=== PATIENT | male | born 1945 | race Caucasian/White ===

== ENCOUNTER 2016-08-26 13:15 | Observation (INO) | payer OTHER ==
[2016-08-26] VITALS (7 sets, daily range): BP systolic 103–153; BP diastolic 66–90; PULSE 83–94; RESP 18–26; O2SAT 95–97
[~2016-08-26] VITALS: Ht 182.9 cm; Wt 89.6 kg
--- NOTE | 2016-08-26 13:22 | ED.REPORT ---
HPI-General Illness Date of Service August 26, 2016 ED Provider: Thang Sy MD The patient is a 71 year old male w/ a hx of COPD, CO, TIA and peripheral neuropathy who presents to the ED due to numbness in his right arm onset 6 hrs ago. He woke up this morning at 0700 with bilateral blurred vision, numbness and tingling in the right arm and neck. Pt also states that his "jaw wants to lock." He denies chest pain and headache. Pt reports that when he had a previous heart attack, he also experienced right arm numbness. He is on blood thinners. Pt lives by himself. Nursing Notes Stated Complaint: ARM PAIN/NECK PAIN/VISION BLURRED Chief Complaint: General Complaint Nursing Notes Reviewed: Yes Allergies: Coded Allergies: morphine (Verified Allergy, Intermediate, Nausea,Vomiting, 10/31/15) hydrocodone (Verified Allergy, Mild, 08/26/16) methadone (Verified Allergy, Mild, 08/26/16) Scheduled Amitriptyline (Amitriptyline) 150 Mg Tablet 150 MG PO HS Atorvastatin (Lipitor) 40 Mg Tablet 40 MG PO HS Budesonide/Formoterol 160-4.5 mcg Inh (Symbicort 160-4.5 mcg Inh) 120 Puff Inhaler 2 PUFF INHALATION BID Fluticasone Propionate (Fluticasone Propionate Nasal) 16 Gm [place].susp 2 SPRAY NS DAILY Hydrochlorothiazide (Hydrochlorothiazide) 12.5 Mg Capsule 12.5 MG PO DAILY Lisinopril (Lisinopril) 5 Mg Tablet 5 MG PO DAILY Melatonin/Pyridoxine (Melatonin 3 mg Tablet) 1 Each Tablet 2 EACH PO HS Montelukast (Montelukast) 10 Mg Tablet 10 MG PO HS Multivitamin with Minerals (Myvitalife) 1 Each Capsule 1 EACH PO DAILY Pantoprazole DR (Pantoprazole DR) 40 Mg Tablet.dr 40 MG PO BID Pregabalin (Lyrica) 100 Mg Capsule 100 MG PO TID Risperidone (Risperidone) 3 Mg Tablet 3 MG PO HS Tiotropium [place] (Spiriva Respimat) 1.25 Mcg/Actuation Mist.inhal 2 PUFFS IH DAILY Scheduled PRN Capsaicin (Capsaicin) 42.5 Gm Cream..g. 1 APPLIC TOPICAL QID PRN PRN For Pain apply to feet and legs Docusate Sodium (Docusate Sodium) 250 Mg Capsule 250 MG PO BID PRN PRN For Constipation Hydrocodone-Acetaminophen 5-325 mg (Hydrocodone-Acetaminophen 5-325 mg) 1 Each Tablet 1 EACH PO Q4H PRN PRN For Pain Lidocaine Cream (Lidocaine Cream) 5 Gm Cream..g. 1 APPLIC TOPICAL BID PRN PRN feet pain Mirtazapine (Mirtazapine) 30 Mg Tablet 15 MG PO HS PRN PRN Insomnia Nitroglycerin SL (Nitrostat) 0.4 Mg Tab.subl 0.4 MG SL Q5MIN PRN PRN For Chest Pain General Time Seen by MD: 13:21 Chief Complaint Other (right arm numbness ) Hx Obtained From: Patient Arrived By: Walk-in Sudden in Onset?: Yes Onset Occurred: 5 - 8 hours ago Symptom Duration: Since onset Location: : Arm right: Neck Recent Healthcare: No recent doctor visit, No recent hospitalization Similar Sx Previous: No Past Medical History Past Medical History COPD CO with stents 2002 TIA Past Surgical History Laparotomy Cardiac stents 2002 Smoking History Current Every Day Smoker Social History Alcohol Use: Denies alcohol use Drug Use: Denies drug use Ambulatory Status Independent Review of Systems Full Review of Systems Constitutional: Denies: Fever Eyes: Reports: Blurred bilateral Cardiovascular: Denies: Chest pain GI: Denies: Abdominal pain Musculoskeletal: Reports: Extremity pain Neurologic: Reports: Numbness, Weakness, Denies: Headache Complete sys rev & neg: except as marked. Physical Exam Vital Signs Vital Signs Date Time Temp Pulse Resp B/P Pulse Ox O2 Delivery O2 Flow Rate FiO2 08/26/16 14:54 83 23 124/66 95 Room Air 08/26/16 13:35 36.4 93 26 117/68 97 Room Air 08/26/16 13:24 36.9 94 21 103/74 95 Room Air Initial VS: Reviewed Head / Eyes: Atraumatic, Normocephalic, PERRL ENT: Mucous membranes moist Cardiovascular: Regular rate & rhythm, Heart sounds normal, Intact distal pulses Abdomen / GI: Soft, Non-tender, No guarding, No rebound, No distention Back: No CVA tenderness Extremities: Vascular intact, Neuro intact, No swelling, No tenderness Skin: Warm, Dry Neurologic: Alert, Oriented Respiratory / Chest: No wheezing coarse breath sounds Interpretation & Diagnostics Lab Results Interpretation Result Diagram: 08/27/16 0607 08/27/16 0607 Test 5/17/17 13:30 08/26/16 13:53 Prothrombin Time 10.3sec (8.1-12.5) Prothromb Time International Ratio 0.96ratio Magnesium Level 1.9mg/dL (1.6-2.6) Pro-B-Type Natriuretic Peptide 70.08pg/mL (0-376) Osmolality 299 (275-300) Ketones Negative (Negative) ECG Interpretation ECG Interpretation: no ST elevations no ST changes Time: 13:36 Interpreted by: ED physician Normal ECG Interpretation: Normal sinus rhythm (rate 82) X-Ray Chest Interpretation Chest Xray Interpretation: IMPRESSION: Negative chest. No pneumonia or overt heart failure. Dictated by: Man Brasher M.D. on 08/26/2016 at 12:50 Approved by: Man Brasher M.D. on 08/26/2016 at 12:50 View: Portable Interpretation / Wet Read by: Interpret - Radiologist Re-Eval/Medical Decision Med Decision/Clinical Course 71-year-old male history of CAD, CO, stents, hypertension, smoker, hyperlipidemia. Presenting with right arm numbness and left neck pain earlier today. He reports in the same symptoms when he had his CO in the past. EKG no signs ischemia. For such as needed. Given heart score and history, admitted for ACS rule out. Time of Eval: 14:39 Re-Evaluation/Progress Note: Pt rechecked. Informed pt of plan for admission. Pt understands and agrees with plan. All questions addressed. Counseled Regarding: Diagnosis, Lab results, Need for admission Discharge & Departure Primary Impression: Chest pain Chest pain type: unspecified Qualified Code: R07.9 - Chest pain, unspecified Ruled Out: ACS (acute coronary syndrome) Disposition: ADMITTED TO HOSPITAL Discharge Condition All VS Reviewed: Yes Condition: Stable Referrals: NOPCP (PCP) [facility] Scribe Attestation Portion of this note were transcribed by Elizabeth Martinez. I, Dr. yS, personally performed the history, physical exam, and medical decision-making: I reviewed and confirmed the accuracy for the information in the transcribed note. Signed by: cole Solomon, 08/26/16 1500 copies to: [facility] Risk Factors NIH Stroke Scale Level of Consciousness: Alert and responsive (0) Ask Month & Age: Both questions right (0) Open/Close Eyes/Hand Mechanic Field Service: Performs both tasks (0) Horizontal EO Movements: None (0) Visual Linda: No visual loss (0) Facial Palsy: Normal symmetry (0) Right Arm Motor Drift (10s): No drift 10 sec (0) Left Arm Motor Drift (10s): No drift 10 sec (0) Right Leg Motor Drift (5s): No drift 5 sec (0) Left Leg Motor Drift (5s): No drift 5 sec (0) Limb Ataxia FNF/Heel-Baker: No ataxia (0) Sensation (Arms/Legs/Face): No sensory loss (0) Language Aphasia: No aphasia, normal (0) Dysarthria: No dysarthria, normal (0) Extinction/Inattention: No exctinct/inattent (0) Time NIHSS Performed: 13:32 Date NIHSS Performed: August 26, 2016 Thang Sy MD August 26, 2016 13:22 Elizabeth Martinez August 26, 2016 13:32 Left Arm Motor Drift (10s): No drift 10 sec (0) Right Leg Motor Drift (5s): No drift 5 sec (0) Left Leg Motor Drift (5s): No drift 5 sec (0) Limb Ataxia FNF/Heel-Baker: No ataxia (0) Sensation (Arms/Legs/Face): No sensory loss (0) Language Aphasia: No aphasia, normal (0) Dysarthria: No dysarthria, normal (0) Extinction/Inattention: No exctinct/inattent (0) Time NIHSS Performed: 13:32 Date NIHSS Performed: August 26, 2016 Thang Sy MD August 26, 2016 13:22 Elizabeth Martinez August 26, 2016 13:32
[2016-08-26 13:44] LABS: BASOPHILS % (AUTO) 1.1 % (0-3); EOSINOPHILS % (AUTO) 2.3 % (0-5); MONOCYTES % (AUTO) 11.2 % (4-12); Mean Corpuscular Hemoglobin 30.6 pg (27.0-35.0); Mean Corpuscular Volume 89.5 fL (81-100); NEUTROPHILS % (AUTO) 57.2 % (40-74); Platelet Count 291 bil/L (150-400)
[2016-08-26] MEDS ORDERED: 0.9% Sodium Chloride 1,000 ML IV ONE (13:50)
--- NOTE | 2016-08-26 13:51 | DRSVH ---
PROCEDURE: X-RAY CHEST ONE VIEW, PORTABLE ([id number]) INDICATIONS: CHEST PAIN TECHNIQUE: One view of the chest was acquired. COMPARISON: None. FINDINGS: Surgical changes and devices: None. Lungs and pleura: No pleural effusions or pneumothorax. Lungs are clear. Mediastinum: Mediastinal contours appear normal. Heart size is normal. Bones and chest wall: No suspicious bony lesions. Overlying soft tissues appear unremarkable. IMPRESSION: Negative chest. No pneumonia or overt heart failure. Dictated by: Man Brasher M.D. on 08/26/2016 at 12:50 Approved by: Man Brasher M.D. on 08/26/2016 at 12:50
[2016-08-26 14:01] LABS: INR 0.96 ratio
[2016-08-26 14:12] LABS: TROPONIN T < 0.010 ug/L (0.0-0.011)
--- NOTE | 2016-08-26 14:33 | DRSVH ---
PROCEDURE: CT BRAIN WITHOUT CONTRAST ([id number]) INDICATIONS: RUE numbness TECHNIQUE: Noncontrast 4.5 mm thick angled axial sections acquired from the foramen magnum to the vertex, with c oronal reformats. COMPARISON: None. FINDINGS: Image quality: Diagnostic. Brain: There is no acute intra-axial or extra-axial hemorrhage. No extra-axial fluid collection is i dentified. There is no midline shift or mass effect. The orbits are grossly unremarkable. No large areas of diffusely decreased attenuation are evident within the brain to suggest diffuse cer ebral edema. There may be vague areas of low-attenuation within the deep white matter of the bilater al frontal lobes (right greater left). The ventricles and cortical sulci are age-appropriate. Bones: Calvarium and visualized facial bones are grossly intact. The imaged paranasal sinuses and m astoid air cells are clear. IMPRESSION: 1. No acute intracranial hemorrhage. 2. Vague areas of low-attenuation within the deep white matter of the frontal lobes is nonspecific a nd may be related to chronic small vessel ischemic changes. The need for better characterization uti lizing MRI may be determined clinically. Dictated by: Man Brasher M.D. on 08/26/2016 at 13:28 Approved by: Man Brasher M.D. on 08/26/2016 at 13:31
[2016-08-26 14:35] LABS: Magnesium 1.8 mg/dL (1.6-2.6)
[2016-08-26] MEDS ORDERED: Alum-Mag Hydrox-Simeth 30 mL Suspension PO PRN (15:10)
[2016-08-26] MEDS ORDERED: Polyethylene Glycol (PEG) 17 Gm Powder PO PRN (15:10)
[2016-08-26] MEDS ORDERED: Ondansetron 2 mg/mL 2 mL Inj IVPUSH PRN (15:10)
--- NOTE | 2016-08-26 15:32 | NUR ---
admit pt is transferred up from ED. pt transfers himself from the gurney to the hospital bed. pt denies CP. tele started. HAZARDOUS WASTE MATERIAL TECHNICIAN getting vitals.
[2016-08-26] MEDS ORDERED: AMIT150T PO (15:34)
[2016-08-26] MEDS ORDERED: HYDR-4003 PO (15:34)
[2016-08-26] MEDS ORDERED: LIP40 PO (15:34)
[2016-08-26] MEDS ORDERED: MONT10TA23 PO (15:46)
[2016-08-26] MEDS ORDERED: HYDR12.5 PO (15:46)
[2016-08-26] MEDS ORDERED: LIDO5CRE17 TOPICAL (15:46)
[2016-08-26] MEDS ORDERED: CAPS42.58 TOPICAL (15:46)
[2016-08-26] MEDS ORDERED: MIRT30TA6 PO (15:46)
[2016-08-26] MEDS ORDERED: PANT40TA3 PO (15:46)
[2016-08-26] MEDS ORDERED: MELA1TAB11 PO (15:46)
[2016-08-26] MEDS ORDERED: MULT1CAP45 PO (15:46)
[2016-08-26] MEDS ORDERED: NITR0.4T SL (15:46)
[2016-08-26] MEDS ORDERED: TIOT4MIS5 IH (15:46)
[2016-08-26] MEDS ORDERED: FLUT16SP NS (15:46)
[2016-08-26] MEDS ORDERED: DOCU250C2 PO (15:46)
[2016-08-26] MEDS ORDERED: RISP3TAB3 PO (15:46)
[2016-08-26] MEDS ORDERED: LISI-571 PO (15:46)
[2016-08-26] MEDS ORDERED: SYMINH INHALATION (15:46)
[2016-08-26] MEDS ORDERED: PREG100C PO (15:46)
[2016-08-26] MEDS: Sodium Chloride LOK Flush 10 mL Syringe IVFLUSH SCH (16:18)
[2016-08-26 17:09] LABS: APPEARANCE,URINE CLEAR (CLEAR,HAZY); COLOR,URINE YELLOW (YELLOW); OCCULT BLOOD,URINE NEGATIVE (NEGATIVE); UROBILINOGEN,URINE NORMAL (NORMAL)
--- NOTE | 2016-08-26 17:38 | NUR ---
daughter's update daughter calls to get an update on pt, this RN let her know that her father is in stable condition. She states that her father has been slurring his words for about 1 week when she speaks with him on the phone.
[2016-08-26] MEDS ORDERED: Lidocaine 5% 35.5 Gm Ointment TOPICAL PRN (17:55)
[2016-08-26] MEDS: HYDROcodone-APAP 5-325 mg Tablet PO PRN (19:35)
[2016-08-26 19:42] LABS: TROPONIN T < 0.010 ug/L (0.0-0.011)
[2016-08-26 19:44] LABS: Creatine Kinase 93 U/L (21-232)
--- NOTE | 2016-08-26 19:46 | NUR ---
Home meds in pharmacy Patient's home medications sent to [facility] Patient signed sealed bag, agreeable with policy.
[2016-08-26] MEDS: risperiDONE 1 mg Tablet PO SCH (20:50)
[2016-08-26] MEDS: Pantoprazole 40 mg ER24 Tablet PO SCH (20:50)
[2016-08-26] MEDS: Fluticasone-Salmeterol 500-50 Inhaler INHALATION SCH (20:50)
--- NOTE | 2016-08-26 21:36 | DRSVH ---
CORRECTED CC PROVIDER ON 09/10/16 PROCEDURE: MRI STROKE PROTOCOL ([id number]) Pre- and post-contrast brain MRI, non-contrast brain MR angiogram, pre- and postcontrast neck MR en ogram INDICATIONS: unilateral numbness, weakness TECHNIQUE: Brain: Noncontrast axial T1 spin echo, axial T2 fast spin echo, sagittal and axial FLAIR, coronal T2 fast spin echo, axial gradient echo, axial diffusion and ADC through the brain. After the administr ation of contrast, axial 3D VIBE of the cranial vasculature and brain. Brain MRA: Non-contrast 3-D time of flight MR angiogram, with multiple kvlwwuz-gzkdhgtyl-icqpkpcmae (MIP) reformats performed. Neck MRA: Axial and sagittal TruFISP through the neck. Coronal dynamic MR angiogram during administ ration of contrast in the arterial and venous phases, with 3-dimenstional znppybs-mqcdwoqtt-gyfmhkfnt n (MIP) reformats constructed from subtraction images. COMPARISON: [facility], MR, MR LUMBAR SPINE WO CON, 07/14/2016, 14:07. FINDINGS: Image quality: Adequate. BRAIN: CSF spaces: Ventricles are normal in size and shape. Basal cisterns are patent. No extra-axial flu id collections. Brain: No intracranial bleeds or mass effects. Schulte-white matter interface is normal. Diffusion we ighted images show no acute ischemic insults. Brainstem appears normal. Normal intravascular flow v oids are present. No abnormal intracranial enhancement. Increased T2 signal in the subcortical and periventricular white matter rhythm was regular for the patient's age. Skull and face: Calvarial marrow signal is normal. Orbits appear normal. Sinuses: Sinuses and mastoids are clear. BRAIN MR ANGIOGRAM: Anterior circulation: Intracranial internal carotid arteries are normal in size and enhancement. Th e flow within the paired anterior cerebral arteries is normal and symmetric. The flow within the mid dle cerebral arteries is normal and symmetric. The anterior communicating artery is seen. No stenos es, occlusions, or aneurysms. Posterior circulation: The visualized portions of the vertebral arteries demonstrate normal caliber, and join to form a normal appearing basilar artery. The flow within the posterior cerebral arteries is normal and symmetric. No stenoses, occlusions, or aneurysms. NECK MR ANGIOGRAM: Carotids: Great vessels demonstrate a conventional anatomy as they arise from the aortic arch. The origins of the common carotid arteries appear patent. The calibers and courses of both common caroti d arteries are normal. The bifurcation regions appear normal bilaterally. The internal carotid petey rogerio demonstrate normal course and caliber. Posterior circulation: The origins of the vertebral arteries appear patent. More superior portions of both vertebral arteries demonstrate normal course and caliber, and join to form a normal appearing basilar artery. Miscellaneous: Subclavian arteries appear patent. Pre-contrast images through the neck show no soft tissue abnormalities. IMPRESSION: BRAIN MRI: Increased T2 signal in the subcortical and periventricular white matter greater than expec charli for the patient's age most consistent with chronic benign ischemic change. Vasculitis or demyelin ating disease is much less likely given the patient's age. No acute intracranial findings including n o acute infarction. BRAIN MR ANGIOGRAM: Normal NECK MR ANGIOGRAM: Normal The estimate of stenosis included in the report of the imaging study was calculated using the NASCET method Dictated by: Kyaw Chavarria M.D. on 08/26/2016 at 21:20 Approved by: Kyaw Chavarria M.D. on 08/26/2016 at 21:29
[2016-08-27] VITALS (10 sets, daily range): BP systolic 122–145; BP diastolic 67–83; PULSE 84–89; RESP 19–21; O2SAT 93–95
--- NOTE | 2016-08-27 00:13 | PCM.HPMED ---
Subjective Date of Service August 26, 2016 Primary Provider: Admitting Physician: Noman Alvarez MD Primary Care Physician: Dheeraj Attending Physician: Noman Alvarez MD Admit Status: From the Emergency Department Chief Complaint: Right elbow numbness, pain neck pain History of Present Illness: Patient with past medical history history of AAA, CAD status post AL for which she received 2 stents in 2002, TIA, diabetes, hyperlipidemia, GERD, COPD, neuropathy, tobacco abuse is presenting to the ER with nonspecific right elbow down to her right wrist pain (this is the same pain he has had back in 2019 when he had an AL), onset was 2 days ago he also had another episode today during which both sides of his neck and GI would hurt and not open his episodes lasted a few hours each time today to the pain has started at 7 AM when he woke up and by noon it got much worse. He has had shortness of breath earlier but not anymore. All the pain has subsided. Pain was worse with movement. He has no urinary symptoms, no appetite problems, no nausea vomiting no diarrhea. He does endorse some constipation. In the ER EKG was normal sinus rhythm troponin was normal but glucose was initially 400s but upon a follow-up pravastatin be only on 100s chest x-ray was nonacute CT showed nonspecific Review of Systems: Gen.: No weight gain patient has not been having fevers and malaise Eyes: no visual disturbances or blurring vision HEENT: No nose/throat drainage, no pain in ears or throat, no hearing loss Lymph: No lymph nodes noted Cardiac: No chest pain, orthopnea, PND, palpitations , pedal edema or dyspnea on exertion Pulmonary: Positive wheezing or bringing up of sputum + worsening dyspnea and cough, l GI: No anorexia nausea vomiting blood or black in the stool : no dysuria hematuria urinary frequency or decrease in urine output Musculoskeletal: Joint swelling no joint pain no new muscle aches or back pain Neuro: No syncope, seizures no loss of consciousness . Endorsing numbness over his left arm. Psychiatric: New new anxiety insomnia or depression Endocrine: No new heat or cold intolerances polyuria or polydipsia Hematology: No lymphadenopathy or easy bleeding or bruising noted skin: No new rashes, stasis dermatitis I will review of systems negative except as stated above Allergies Coded Allergies: morphine (Verified Allergy, Intermediate, Nausea,Vomiting, 10/31/15) hydrocodone (Verified Allergy, Mild, 08/26/16) methadone (Verified Allergy, Mild, 08/26/16) PMH Past medical history significant for abdominal aortic aneurysm, CAD, TIA, DM 2, hyperlipidemia, GERD, COPD, peripheral neuropathy Surgical History Past surgical history remarkable for exploratory abdominal laparotomy cardiac stents Family History Mother of natural causes, dad of natural causes, sister has of heart attack, brother was killed after trauma Social History Hx Alcohol Use: No Hx Substance Use: No Hx Tobacco Use: No Smoking Status: Current Every Day Smoker (smokes one pack per day declines nicotine patch) Living Arrangement: Alone Exam Vital Signs Vital Sign - Last Date Time Temp Pulse Resp B/P Pulse Ox O2 Delivery O2 Flow Rate FiO2 08/26/16 15:51 88 08/26/16 15:40 36.6 20 153/90 96 Room Air Exam Gen.: No acute distress pleasant HEENT: Normocephalic, large healed up injury noted over his frontal skull Heart: systolic murmur, regular rate and rhythm lungs: Positive for ronchi, wheezing, neuro: lower right arm numbness, right-sided face numb Extremities negative for edema Neuro exam : CN II-12 positive for altered sensation all the right side of face , no leg edema, negative romberg, negative babinski, reflex achilles 1+, unable to elicit patellar reflex , altered sensation over right lower arm Musculoskeletal: Weakness in right hand compared to left fifth finger robotics engineer Lab and Diagnostics Result Diagram: 08/26/16 1330 08/26/16 1330 X-Rays, CTs and MRIs CT head without Vague areas of low-attenuation within the deep white matter of the frontal lobes is nonspecific and may be related to chronic small vessel ischemic changes. The need for better characterization utilizing MRI may be determined clinically. Negative for acute bleeding Assessment & Plan Assessment #1 nonspecific pain the patient feels is the same as that but he had with his prior AL, present admission -- We will rule out ACS -- Troponins, telemetry monitoring, oxygen as needed, he is allergic to morphine , -- Continue medications lisinopril, Plavix, statin -- NM Chemical stress test tomorrow a.m. Assessment #2 new onset numbness over arm and face: -- CT head was negative will follow up with MRI and CAT scan -- Echocardiogram tomorrow a.m. Assessment #12 CAD: Chronic Continue medications Assessment #3 DM 2: Chronic Patient has no home medications, will continue to monitor blood glucose Assessment #4 hyperlipidemia -- Continue home meds Assessment #5 COPD assessment #5 COPD continue home medications Spiriva Symbicort Assessment #6 neuropathy -- Continue home medication. pregabalin Assessment #7 depression, chronic -- Continue home medication mirtazapine Pain Evaluation: Adequate Pain Control Resuscitation Status: DNR/DNI:Do Not Resuscitate/Intubate (Dr. Lewis is also made decision maker) Time spent 45 minutes Brittany Alvarez DO August 26, 2016 18:17
[2016-08-27] MEDS: Sodium Chloride LOK Flush 10 mL Syringe IVFLUSH SCH ×3 (00:55→16:21)
[2016-08-27 01:59] LABS: Creatine Kinase 84 U/L (21-232)
--- NOTE | 2016-08-27 04:17 | NUR ---
Uneventful night Patient slept through the night, woke up with assessments and to use restroom. [place] alarm on for safety, patient is SBA with his cane. Remained alert and oriented, neuros unchanged, denied chest pain, vital signs stable. Patient has been NPO since midnight for planned stress test.
[2016-08-27 06:27] LABS: BASOPHILS % (AUTO) 1.2 % (0-3); EOSINOPHILS % (AUTO) 2.2 % (0-5); MONOCYTES % (AUTO) 9.2 % (4-12); Mean Corpuscular Hemoglobin 30.4 pg (27.0-35.0); Mean Corpuscular Volume 91.3 fL (81-100); Platelet Count 251 bil/L (150-400)
[2016-08-27] MEDS: Pantoprazole 40 mg ER24 Tablet PO SCH ×2 (07:49→20:40)
[2016-08-27] MEDS: 0.9% Sodium Chloride 1,000 ML IV SCH ×2 (07:50→17:30)
[2016-08-27] MEDS: Fluticasone 0.05% 15 Spray/2 Gm 16 Gm Nasal Spray NASAL SCH (07:54)
[2016-08-27] MEDS: Fluticasone-Salmeterol 500-50 Inhaler INHALATION SCH ×2 (07:54→20:40)
[2016-08-27] MEDS: Tiotropium 18mcg/Cap 5 Capsule Inhaler Kit INHALATION SCH (07:55)
[2016-08-27] MEDS: HYDROcodone-APAP 5-325 mg Tablet PO PRN ×2 (07:55→19:24)
[2016-08-27] MEDS: Heparin 5,000 Unit/mL Inj SUBQ SCH ×2 (08:26→16:32)
--- NOTE | 2016-08-27 08:27 | NUR ---
pt states that he woke up this am with a swollen left forearm and hand. pt also states that it has been gradually improving as the morning goes on. Monitoring
--- NOTE | 2016-08-27 10:11 | DRSVH ---
PROCEDURE: US BILATERAL DUPLEX DOPPLER IMAGING OF THE CAROTIDS ([id number]) INDICATIONS: stroke r/o TECHNIQUE: Color and pulse Doppler interrogation was performed of both carotid systems, with image documentation and velocity measurements. COMPARISON: None. FINDINGS: All stenosis calculations are based on NASCET criteria. Right side: Brachial blood pressure: Not obtained. Common Carotid Artery(Distal) PSV: 63.10 cm/s Internal Carotid Artery PSV- Proximal: 65 cm/s Mid-lon.50 cm/s Distal: 81.30 cm/s EDV - Proximal: 19.50 cm/s Mid-lon.50 cm/s Distal: 30.80 cm/s External Carotid Artery(Proximal) PSV: 86.90 cm/s ICA/CCA PSV ratio: 1.3 Schulte scale imaging description: Minimal plaque. Percent internal carotid artery stenosis: Less than 50%. Vertebral artery: Flow direction is antegrade. Left side: Brachial blood pressure: 137/81 mm Hg. Common Carotid Artery(Distal) PSV: 68.30 cm/s Internal Carotid Artery PSV - Proximal: 62.20 cm/s Mid-lon.50 cm/s Distal: 79.60 cm/s EDV - Proximal: 19 cm/s Mid-lon cm/s Distal: 26.90 cm/s External Carotid Artery(Proximal) PSV: 108.30 cm/s ICA/CCA PSV ratio: 1.2 Schulte scale imaging description: Minimal plaque. Percent internal carotid artery stenosis: Less than 50%. Vertebral artery: Flow direction is antegrade. IMPRESSION: Less than 50% bilateral internal carotid artery stenosis. Dictated by: José Miguel AMADOR Interpreted: Amalia Blakely MD on 08/27/2016 at 10:07 Transcribed by: TIFFANI on 08/27/2016 at 10:10 Approved by: Amalia Blakely M.D. on 08/28/2016 at 9:36
--- NOTE | 2016-08-27 11:17 | DRSVH ---
[facility] [address] [place] [address] Echocardiogram Report Name: ASHLEY MCMULLEN WStudy Date : 08/27/2016 Height: 72 in Hospital Exam Location: [facility] Weight: 197 lb Gender: Male BSA: 2.1 m2 : 1945 Age: 71 yrs BP: 122/79 mmHg Reason For Study: MURMUR Ordering Physician: ADIS OTOOLE Performed By: Tacho Lanier Interpretation Summary The left ventricle is normal in size. Left ventricular systolic function is normal without focal wall motion abnormalities. The ejection fraction is estimated to be 60-65%. Assessment of diastolic parameters indicates a relaxation abnormality of the left ventricle, consistent with normal filling pressures. The right ventricle is normal in size and function. Both atria are normal in size. There is no significant valvular heart disease. The aortic root is normal size. Procedure: A two-dimensional transthoracic echocardiogram with color flow and Doppler was performed. The study quality was technically adequate. There is no prior echocardiogram noted for this patient. The subcostal views were not obtained due to lack of useable window. The patient was in normal sinus rhythm during the exam. Left Ventricle: The left ventricle is normal in size. There is normal left ventricular wall thickness. Left ventricular systolic function is normal without focal wall motion abnormalities. The ejection fraction is estimated to be 60-65%. Assessment of diastolic parameters indicates a relaxation abnormality of the left ventricle, consistent with normal filling pressures. Right Ventricle: The right ventricle is normal in size and function. Atria: Both atria are normal in size. The interatrial septum is intact with no evidence for an atrial septal defect. Mitral Valve: The mitral valve is normal in structure and function. There is trace mitral regurgitation. Aortic Valve: The aortic valve is trileaflet. The aortic valve is slightly calcified. The aortic valve opens well. There is no aortic valve stenosis. No aortic regurgitation is present. Tricuspid Valve: The tricuspid valve is normal in structure and function. There is a trace or physiologic amount of tricuspid regurgitation. Pulmonary artery pressures cannot be estimated because of the lack of a measurable TR jet velocity. Pulmonic Valve: The pulmonic valve is normal in structure and function. There is trace pulmonic regurgitation. There is no significant valvular heart disease. Great Vessels: The aortic root is normal size. The dimensions of the ascending aorta are normal. The pulmonary artery is normal size. The inferior vena cava was not visualized. Pericardium/ Pleura There is no pericardial effusion. There is no pleural effusion. MMode/2D Measurements & Calculations LVIDd: 4.9 cm LA dimension: 3.7 cm RA long axis LVOT diam: 2.4 cm LVIDs: 3.3 cm Ao root diam FS: 32.2 % LA A2 area: 18.7 cm RA area EPSS: 0.87 cm LA A4 area: 17.5 cm Aortic Jxn: 2.7 cm IVSd: 1.1 cm LA length (vol) : 14.8 cm asc Aorta Diam LVPWd: 0.94 cm RA vol LA vol: 51.8 ml : 36.9 ml Ao Arch Diam (Prox LA vol index RA Trans): 2.7 cm : 17.4 mm2 : 24.5 ml/m2 LV knight. diameter/BSA LV sys. diameter/BSA RVD1 (basal) RVD2 (mid): 3.3 cm (cm/m^2): 2.3 (cm/m^2): 1.6 Doppler Measurements & Calculations Ao V2 max MV E max piyush MV E/A: 0.63 PA V2 max : 139.3 cm/sec : 53.8 cm/sec Med Peak E' Piyush : 84.8 cm/sec Ao max P.8 mmHg MV A max piyush PA mean PG Ao mean P.5 mmHg : 84.8 cm/sec E/E' med: 9.1 LVOT Max Piyush Lat Peak E' Piyush PA Accel Time : 100.0 cm/sec : 0.11 sec E/E' lat: 5.9 MERCEDES(I,D): 3.2 cm E/e' average sev ratio: 0.70 Pulm A Revs Dur MV A dur : 0.13 sec MV dec time: 0.22 secAo V2 mean LV V1 max PG PA V2 mean : 102.0 cm/sec : 66.5 cm/sec Ao V2 VTI: 27.7 cm LV V1 VTI PA pr(Accel) : 19.5 cm : 31.6 mmHg MERCEDES(V,D): 3.3 cm2 MERCEDES indexed to BSA Pulm A Revs Dur - MV A (cm^2/m^2): 1.5 Dur: -0.01 msec Reading Physician:EVERETT
--- NOTE | 2016-08-27 15:05 | NUR ---
Social Work: Initial Assessment / Readiness for d/c Data: Pt is a 71 y/o male admitted for CP. Pt's PCP is not listed, pt's insurance is [employer]. Pt reports he goes to [facility] for medical care. Readmit score not listed. EMR reviewed. HEALTH UNDERWRITER met with pt at bedside, role explained. Pt states that he lives alone in a roadside coffee shop that was never made into a coffee shop. He lives next door to a friends trailer and uses this person toilet. Pt states he has a cane, walker, and electric scooter. Pt drives, has no hx of HH or SNF, not LTC insurance. Pt is 100% connected to the [facility], HEALTH UNDERWRITER notified UR specialist. Pt reports that he has been up and independent during hospitalization. No d/c planning needs anticipated at this time. HEALTH UNDERWRITER will continue to follow if needs arise. Pt reports NOK would be a friend named Kitty Henry, , who he states is like a step-daughter to him. Assessment: Pt who is independent at baseline. Plan: Pt will d/c home via POV when medically stable, possibly today or tomorrow per MD. No d/c planning needs anticipated at this time. HEALTH UNDERWRITER will continue to follow if needs arise. ROSAURA Roldan Addendum: 08/27/16 at 1509 by ANTONIA JENKINS Amended: Links added.
[2016-08-27] MEDS: risperiDONE 1 mg Tablet PO SCH (20:40)
--- NOTE | 2016-08-27 21:02 | DRSVH ---
PROCEDURE: ONE DAY PHARMACOLOGICAL STRESS TEST REFERRING PHYSICIAN: Dr. Alvarez INDICATIONS: Mr. Deutsch is a 71-year-old male with a history of coronary disease and peripheral arteri al disease. The patient presents with symptoms of chest discomfort and a nuclear cardiac stress stud y is performed to exclude underlying ischemic heart disease. COMPARISON: None. STRESS TEST: This gentleman underwent a Lexiscan pharmacologic stress study. The baseline 12-lead E KG appears to be normal. The patient developed symptoms of significant dyspnea, flushing and lighthe adedness following Lexiscan injection with a normal pharmacologic response and was treated with 100 m g of intravenous aminophylline. EKG did not demonstrate any diagnostic ST segment changes. PROCEDURE: This patient received 7 mCi of technetium-99 tetrofosmin for the resting portion of the e xamination. He subsequently received 23.9 mCi for the stress portion of the examination. FINDINGS: 1. Raw Data: Raw data images demonstrate overall good quality images. No significant source of art ifact or interference is identified. 2. Quantitative Gated SPECT Imaging: Gated images show a normal end diastolic volume of 77 cc. Est imated ejection fraction is 78% with no regional wall motion abnormalities noted. 3. Quantitative Perfusion SPECT Imaging: Myocardial perfusion imaging shows a normal distribution o f radioisotope throughout the myocardium. There is a moderate amount of diaphragmatic tissue attenua tion artifact seen on both stress and rest perfusion images, but normalized with prone imaging. Once again, no fixed or reversible perfusion abnormalities are noted that would suggest ischemia or infar ction. IMPRESSION: Normal nuclear cardiac stress study. DISCUSSION: Nuclear cardiac stress study suggests a low likelihood for the presence of significant r ecurrent obstructive coronary artery disease. Clinical correlation is suggested. Dictated by: Tristin Crain M.D. on 08/27/2016 at 16:53 Transcribed by: JUNIOR on 08/28/2016 at 0:02 Approved by: Tristin Crain M.D. on 09/22/2016 at 15:40
--- NOTE | 2016-08-27 21:14 | PCM.PNMED ---
Subjective Date of Service August 27, 2016 Subjective Patient is seen and examined. His biological daughter called in the room and questions were answered to her satisfaction. Patient states he had no chest pain, dyspnea or fevers or chills overnight. States he has had a pretty good night. He recalls neck ultrasound being done this morning. He states that his numbness over his right arm is resolved, but now he is endorsing bilateral facial numbness going back into his scalp Exam Vital Signs Vital Sign - Last Date Time Temp Pulse Resp B/P Pulse Ox O2 Delivery O2 Flow Rate FiO2 08/27/16 09:18 36.5 84 21 137/81 93 Room Air Intake and Output 08/26/16 08/26/16 08/27/16 Cumulative From/Thru 15:00 23:00 07:00 08/26/16 13:24 - 08/26/16 21:57 Intake Total 1000 ml 500 ml 1500 ml Output Total 1400 ml 1400 ml Balance 1000 ml -900 ml 100 ml Intake Oral 500 ml 500 ml IV Total 1000 ml 1000 ml Output Urine Total 1400 ml 1400 ml # Bowel Movements 0 0 Exam Gen.: No acute distress moving around and in the bed okay HEENT: Normocephalic, atraumatic with the exception of old scar over his frontal scalp Heart: Distant heart sounds due to chronic COPD Lungs: Decreased respirator sounds throughout but no wheezing or crackles heard abdomen: Nondistended soft Extremities: No edema Neck: Trachea central states that Feels tight Neuro: Bilateral numbness sensation symmetric distribution to gentle check touch ,his left arm numbness from yesterday has resolved.. Patient has no focal deficits IVs and Medications IV Fluids Normal saline 100 mL/h Medications Reviewed: Medications were reviewed in detail Lab and Diagnostics Result Diagram: 08/27/16 0607 08/27/16 0607 X-Rays, CTs and MRIs CT head without Vague areas of low-attenuation within the deep white matter of the frontal lobes is nonspecific and may be related to chronic small vessel ischemic changes. The need for better characterization utilizing MRI may be determined clinically. Negative for acute bleeding Brain MRa 08/27 IMPRESSION: BRAIN MRI: Increased T2 signal in the subcortical and periventricular white matter greater than expected for the patient's age most consistent with chronic benign ischemic change. Vasculitis or demyelinating disease is much less likely given the patient's age. No acute intracranial findings including no acute infarction. BRAIN MR ANGIOGRAM: Normal NECK MR ANGIOGRAM: Normal The estimate of stenosis included in the report of the imaging study was calculated using the NASCET method Dictated by: Kyaw Chavarria M.D. on 08/26/2016 at 21:20 Approved by: Kyaw Chavarria M.D. on 08/26/2016 at 21:29 Carotid Doppler study: MPRESSION: Less than 50% bilateral internal carotid artery stenosis. Dictated by: José Miguel Jung RRAriana Interpreted: Amalia Blakely MD on 08/27/2016 at 10: 07 Transcribed by: TIFFANI on 08/27/2016 at 10:10 Brain MRI MPRESSION: BRAIN MRI: Increased T2 signal in the subcortical and periventricular white matter greater than expected for the patient's age most consistent with chronic benign ischemic change. Vasculitis or demyelinating disease is much less likely given the patient's age. No acute intracranial findings including no acute infarction. BRAIN MR ANGIOGRAM: Normal NECK MR ANGIOGRAM: Normal The estimate of stenosis included in the report of the imaging study was calculated using the NASCET method Dictated by: Kyaw Chavarria M.D. on 08/26/2016 at 21:20 Approved by: Kyaw Chavarria M.D. on 08/26/2016 at 21:29 Cardiac Echo Impressions Echocardiogram08/27/16 The left ventricle is normal in size. Left ventricular systolic function is normal without focal wall motion abnormalities. The ejection fraction is estimated to be 60-65%. Assessment of diastolic parameters indicates a relaxation abnormality of the left ventricle, consistent with normal filling pressures. The right ventricle is normal in size and function. Both atria are normal in size. There is no significant valvular heart disease. The aortic root is normal size. Assessment & Plan Assessment #1 nonspecific pain the patient feels is the same as that but he had with his prior NH, present admission -- We will rule out ACS -- Troponins, telemetry monitoring, oxygen as needed, he is allergic to morphine , -- Continue medications lisinopril, Plavix, statin -- NM Chemical stress test 08/27 a.m.: Results pending -- Cardiac echo: 60-65% EF Assessment #2 new onset numbness over arm and face: -- CT head was negative will follow up with MRI brain: Stroke protocol MRA showed no concern for acute stroke, chronic ischemic changes noted and was called for his age are seen. Ruled out acute stroke. -- Neck ultrasound carotid study: neg for critical stenosis -- Arm numbness has resolved -- and says numbness over his face is now bilateral radiating into parietal , frontal and temporal skull: We will discuss with Dr. Resendiz. Dr. Baker agrees that this can be followed safely as an outpatient. We appreciate her recommendation. Assessment #3 Elevated Creatnine: -- Likely due to dehydration -- Normal 100 mL/h Assessment # 4 CAD: Chronic --Continue medications Assessment #5 DM 2: Chronic -- Patient has no home medications, will continue to monitor blood glucose -- Ordered A1C. Assessment #6 hyperlipidemia -- Continue home meds Assessment #7 COPD continue home medications Spiriva Symbicort Assessment #8 neuropathy -- Continue home medication. pregabalin Assessment #9 depression, chronic -- Continue home medication mirtazapine Disposition: Discharged to home tomorrow if stress looks looks okay Pain Evaluation: Adequate Pain Control Resuscitation Status: DNR/DNI:Do Not Resuscitate/Intubate (Dr. Lewis is also made decision maker) Time spent 30 min Brittany Alvarez DO August 27, 2016 09:27
[2016-08-28] MEDS: Sodium Chloride LOK Flush 10 mL Syringe IVFLUSH SCH ×2 (00:30→08:04)
[2016-08-28] MEDS: Heparin 5,000 Unit/mL Inj SUBQ SCH ×2 (00:52→08:14)
[2016-08-28 00:57] VITALS: BP 134/81; PULSE 85; RESP 18; O2SAT 93
[2016-08-28] MEDS: 0.9% Sodium Chloride 1,000 ML IV SCH (02:03)
--- NOTE | 2016-08-28 03:17 | NUR ---
Left hand swelling Patient reported at 0100 that his left hand was swelling again. Before this, patient had left arm hanging down off of bed while sleeping. Left hand is visibly tight, slightly swollen compared to right hand. IV site in left AC is asymptomatic, fluids infusing. Bed rail raised, pillow placed for patient to keep left arm elevated. Appreciative of intervention, declined PRN pain medication.
[2016-08-28 05:08] VITALS: BP 142/76; PULSE 87; RESP 18; O2SAT 94
[2016-08-28 06:27] VITALS: PULSE 74
[2016-08-28 08:00] VITALS: PULSE 91
[2016-08-28] MEDS: Pantoprazole 40 mg ER24 Tablet PO SCH (08:13)
[2016-08-28] MEDS: Fluticasone-Salmeterol 500-50 Inhaler INHALATION SCH (08:19)
[2016-08-28] MEDS: Fluticasone 0.05% 15 Spray/2 Gm 16 Gm Nasal Spray NASAL SCH (08:20)
[2016-08-28] MEDS: HYDROcodone-APAP 5-325 mg Tablet PO PRN (08:20)
[2016-08-28] MEDS: Tiotropium 18mcg/Cap 5 Capsule Inhaler Kit INHALATION SCH (08:20)
--- NOTE | 2016-08-28 09:00 | NUR ---
Spoke with Elena in patient access at [facility] and this patient is 100% service connected and PNT. Patient also holds [place] and [facility] part D Updated NEUROSURGERY SPINE PHYSICIAN
--- NOTE | 2016-08-28 11:49 | NUR ---
Social Work: Discharge Data: Pt is on day 2 of hospitalization. EMR reviewed. MD states pt will d/c today. CORPORATE TRAFFIC MANAGER met with pt and gave him housing resources. No further d/c planning needs at this time. CORPORATE TRAFFIC MANAGER will continue to follow if needs arise. Assessment: Pt who is independent at baseline. Plan: Pt will d/c home via POV today per MD once D/C orders written. Housing resources given. No further d/c planning needs at this time. CORPORATE TRAFFIC MANAGER will continue to follow if needs arise. ROSAURA Roldan
[2016-08-28] MEDS ORDERED: METO25TA6 PO (11:51)
--- NOTE | 2016-08-28 11:53 | PCM.DIMED ---
Discharge Instructions Date of Service August 28, 2016 Dates of Hospitalization August 26, 2016 at 15:09 Discharge Diagnosis Discharge Diagnosis ACS r/o, neurological symptoms Medication Instructions Please take metoprolol as prescribed Diet Heart Healthy Activity No restrictions Call your provider Fever or Chills, Shortness of breath, Bleeding, Chest pain, Vomitting, Excessive diarrhea, Weakness (unilateral), Other Patient Instructions Follow-up plan F/U with PCP in one week F/U BMP prior to f/u with PCP Brittany Alvarez DO August 28, 2016 11:53
--- NOTE | 2016-08-28 13:09 | NUR ---
Discharge IV discontinued fully intact due to falling out earlier in shift. Tele removed. Discharge instructions explained to patient who verbalizes understanding. All personal belongings given to patient. This RN walked patient to front door of hospital. Patient states that he lives across street.
--- NOTE | 2016-08-31 03:47 | PCM.DC.MED ---
Discharge Summary Date of Service August 31, 2016 Dates of Hospitalization Date of Hospital Admission August 26, 2016 at 15:09 Date of Discharge: August 28, 2016 Providers: Admitting Physician: Brittany Woody DO Primary Care Physician: Dheeraj Attending Physician: Brittany Woody DO Diagnosis at Time of Discharge Diagnosis at Time of Discharge ACS r/o, neurological symptoms Consultations None Procedures XRay, CTs & MRIs CT head without Vague areas of low-attenuation within the deep white matter of the frontal lobes is nonspecific and may be related to chronic small vessel ischemic changes. The need for better characterization utilizing MRI may be determined clinically. Negative for acute bleeding Brain MRa 08/27 IMPRESSION: BRAIN MRI: Increased T2 signal in the subcortical and periventricular white matter greater than expected for the patient's age most consistent with chronic benign ischemic change. Vasculitis or demyelinating disease is much less likely given the patient's age. No acute intracranial findings including no acute infarction. BRAIN MR ANGIOGRAM: Normal NECK MR ANGIOGRAM: Normal The estimate of stenosis included in the report of the imaging study was calculated using the NASCET method Dictated by: Kyaw Chavarria M.D. on 08/26/2016 at 21:20 Approved by: Kyaw Chavarria M.D. on 08/26/2016 at 21:29 Carotid Doppler study: MPRESSION: Less than 50% bilateral internal carotid artery stenosis. Dictated by: José Miguel Jung [facility] Interpreted: Amalia Blakely MD on 08/27/2016 at 10: 07 Transcribed by: TIFFANI on 08/27/2016 at 10:10 Brain MRI MPRESSION: BRAIN MRI: Increased T2 signal in the subcortical and periventricular white matter greater than expected for the patient's age most consistent with chronic benign ischemic change. Vasculitis or demyelinating disease is much less likely given the patient's age. No acute intracranial findings including no acute infarction. BRAIN MR ANGIOGRAM: Normal NECK MR ANGIOGRAM: Normal The estimate of stenosis included in the report of the imaging study was calculated using the NASCET method Dictated by: Kyaw Chavarria M.D. on 08/26/2016 at 21:20 Approved by: Kyaw Chavarria M.D. on 08/26/2016 at 21:29 Cardiac Echo Impression Echocardiogram08/27/16 The left ventricle is normal in size. Left ventricular systolic function is normal without focal wall motion abnormalities. The ejection fraction is estimated to be 60-65%. Assessment of diastolic parameters indicates a relaxation abnormality of the left ventricle, consistent with normal filling pressures. The right ventricle is normal in size and function. Both atria are normal in size. There is no significant valvular heart disease. The aortic root is normal size. Other Diagnostics PROCEDURE: ONE DAY PHARMACOLOGICAL STRESS TEST REFERRING PHYSICIAN: Dr. Woody INDICATIONS: Mr. Deutsch is a 71-year-old male with a history of coronary disease and peripheral arterial disease. The patient presents with symptoms of chest discomfort and a nuclear cardiac stress study is performed to exclude underlying ischemic heart disease. IMPRESSION: Normal nuclear cardiac stress study. DISCUSSION: Nuclear cardiac stress study suggests a low likelihood for the presence of significant recurrent obstructive coronary artery disease. Clinical correlation is suggested. Dictated by: Tristin Crain M.D. on 08/27/2016 at 16:53 Transcribed by: JUNIOR on 08/28/2016 at 0:02 Brief History Patient with past medical history history of AAA, CAD status post IL for which she received 2 stents in 2002, TIA, diabetes, hyperlipidemia, GERD, COPD, neuropathy, tobacco abuse is presenting to the ER with nonspecific right elbow down to her right wrist pain (this is the same pain he has had back in 2019 when he had an IL), onset was 2 days ago he also had another episode today during which both sides of his neck and GI would hurt and not open his episodes lasted a few hours each time today to the pain has started at 7 AM when he woke up and by noon it got much worse. He has had shortness of breath earlier but not anymore. All the pain has subsided. Pain was worse with movement. He has no urinary symptoms, no appetite problems, no nausea vomiting no diarrhea. He does endorse some constipation. In the ER EKG was normal sinus rhythm troponin was normal but glucose was initially 400s but upon a follow-up pravastatin be only on 100s chest x-ray was nonacute CT showed nonspecific Hospital Course Assessment #1 nonspecific pain the patient feels is the same as that but he had with his prior IL, present admission -- We will rule out ACS -- Troponins, telemetry monitoring, oxygen as needed, he is allergic to morphine , : ACS was ruled out -- Continue medications lisinopril, Plavix, statin -- NM Chemical stress test 08/27 a.m.: normal -- Cardiac echo: 60-65% EF Assessment #2 new onset numbness over arm and face: -- CT head was negative will follow up with MRI brain: Stroke protocol MRA showed no concern for acute stroke, chronic ischemic changes noted and was called for his age are seen. Ruled out acute stroke. -- Neck ultrasound carotid study: neg for critical stenosis -- Arm numbness has resolved -- 08/27 and says numbness over his face is now bilateral radiating into parietal , frontal and temporal skull: We will discuss with Dr. Resendiz. She agrees that this can be followed safely as an outpatient. We appreciate her recommendations. Assessment #3 Elevated Creatnine: -- Likely due to dehydration -- Normal 100 mL/h Assessment # 4 CAD: Chronic --Continue medications -- Metoprolol is added to patient's regimen Assessment #5 DM 2: Chronic -- Patient has no home medications, will continue to monitor blood glucose -- Ordered A1C. Assessment #6 hyperlipidemia -- Continue home meds Assessment #7 COPD continue home medications Spiriva Symbicort Assessment #8 neuropathy -- Continue home medication. pregabalin Assessment #9 depression, chronic -- Continue home medication mirtazapine Exam Vital Signs (Last) Date Time Temp Pulse Resp B/P Pulse Ox O2 Delivery O2 Flow Rate FiO2 08/28/16 08:00 91 08/28/16 05:08 36.7 18 142/76 94 Room Air Test 08/26/16 13:30 08/26/16 13:53 08/26/16 16:49 08/27/16 00:17 Prothrombin Time 10.3sec (8.1-12.5) Prothromb Time International Ratio 0.96ratio Magnesium Level 1.9mg/dL (1.6-2.6) Pro-B-Type Natriuretic Peptide 70.08pg/mL (0-376) Osmolality 299 (275-300) Ketones Negative (Negative) Urine Color Yellow (YELLOW) Urine Appearance Clear (CLEAR,HAZY) Urine pH 6.0 (5.0-8.0) Urine Specific [place] 1.010 (1.003-1.035) Urine Protein Negativemg/dL (NEG,TRACE) Urine Glucose (UA) Negativemg/dL (NEGATIVE) Urine Ketones Negativemg/dL (NEGATIVE) Urine Occult Blood Negative (NEGATIVE) Urine Nitrite Negative (NEGATIVE) Urine Bilirubin Negative (NEGATIVE) Urine Urobilinogen Normalmg/dL (NORMAL) Urine Leukocyte Esterase Negative (NEGATIVE) Urine RBC 0-2/hpf (0-2) Urine WBC 0-5/hpf (0-5) Urine Epithelial Cells Occasional/hpf (NONE-MOD) Urine Crystals None seen (NONE SEEN) Urine Bacteria None/hpf (NONE-FEW) Urine Hyaline Casts None/lpf (NONE) Urine Granular Casts None seen (NONE SEEN) Urine Waxy Casts None seen (NONE SEEN) Urine Red Blood Cell Casts None seen (NONE SEEN) Urine White Blood Cell Casts None seen (NONE SEEN) Urine Mucus None seen (None Seen) Urine Trichomonas None seen (NONE SEEN) Urine Yeast None (NONE SEEN) Urinalysis Comment None Urine Culture Reflexed Not indicated Total Creatine Kinase 84U/L (21-232) Creatine Kinase MB 2.5ng/mL (0.0-10.4) Creatine Kinase MB % % (0.0-5.0) Troponin T 0.010ug/L (0.0-0.011) Test 08/27/16 06:07 08/28/16 11:56 White Blood Count 8.9th/mm3 (3.8-10.1) Red Blood Count 4.38mil/mm3 (4.40-5.80) Hemoglobin 13.3g/dL (13.8-17.2) Hematocrit 40.0% (41.0-50.0) Mean Corpuscular Volume 91.3fL (81-100) Mean Corpuscular Hemoglobin 30.4pg (27.0-35.0) Mean Corpuscular Hemoglobin Concent 33.3% (32.0-37.0) Red Cell Distribution Width 14.6% (12.3-15.4) Platelet Count 251bil/L (150-400) Neutrophils (%) (Auto) 64.0% (40-74) Lymphocytes (%) (Auto) 23.3% (14-46) Monocytes (%) (Auto) 9.2% (4-12) Eosinophils (%) (Auto) 2.2% (0-5) Basophils (%) (Auto) 1.2% (0-3) Hemoglobin A1c 6.0% (4.8-5.6) Total Bilirubin 0.4mg/dL (0.0-1.2) Aspartate Amino Transf (AST/SGOT) 18U/L (0-50) Alanine Aminotransferase (ALT/SGPT) 19U/L (0-44) Alkaline Phosphatase 96U/L (25-160) Total Protein 5.7g/dL (6.4-8.4) Albumin 3.4g/dL (3.4-5.0) Triglycerides Level 409mg/dL (0-149) Cholesterol Level 186mg/dL (100-199) LDL Cholesterol, Calculated 69.200mg/dL (0-99) VLDL Cholesterol 81.800mg/dL HDL Cholesterol 35mg/dL (>39) Cholesterol/HDL Ratio 5.31 (0.0-4.4) Sodium Level 139mEq/L (134-144) Potassium Level 4.0mEq/L (3.5-5.2) Chloride Level 102mEq/L (97-108) Carbon Dioxide Level 23mmol/L (18-29) Blood Urea Nitrogen 14mg/dL (8-27) Creatinine 1.15mg/dL (0.76-1.27) Estimat Glomerular Filtration Rate 67mL/min (>59) Glucose Level 133mg/dL (60-99) Calcium Level 9.5mg/dL (8.5-10.1) Discharge Medications Discharge Medications Amitriptyline (Amitriptyline) 150 Mg Tablet 150 MG PO HS (Reported) Atorvastatin (Lipitor) 40 Mg Tablet 40 MG PO HS (Reported) Budesonide/Formoterol 160-4.5 mcg Inh (Symbicort 160-4.5 mcg Inh) 120 Puff Inhaler 2 PUFF INHALATION BID (Reported) Fluticasone Propionate (Fluticasone Propionate Nasal) 16 Gm [place].susp 2 SPRAY NS DAILY (Reported) Hydrochlorothiazide (Hydrochlorothiazide) 12.5 Mg Capsule 12.5 MG PO DAILY ( Reported) Lisinopril (Lisinopril) 5 Mg Tablet 5 MG PO DAILY (Reported) Melatonin/Pyridoxine (Melatonin 3 mg Tablet) 1 Each Tablet 2 EACH PO HS ( Reported) Metoprolol Tartrate (Metoprolol Tartrate) 25 Mg Tablet 12.5 MG PO BID Prescribed by: BRITTANY WOODY DO Montelukast (Montelukast) 10 Mg Tablet 10 MG PO HS (Reported) Multivitamin with Minerals (Myvitalife) 1 Each Capsule 1 EACH PO DAILY (Reported ) Pantoprazole DR (Pantoprazole DR) 40 Mg Tablet.dr 40 MG PO BID (Reported) Pregabalin (Lyrica) 100 Mg Capsule 100 MG PO TID (Reported) Risperidone (Risperidone) 3 Mg Tablet 3 MG PO HS (Reported) Tiotropium [place] (Spiriva Respimat) 1.25 Mcg/Actuation Mist.inhal 2 PUFFS IH DAILY (Reported) As needed Capsaicin (Capsaicin) 42.5 Gm Cream..g. 1 APPLIC TOPICAL QID PRN PRN For Pain ( Reported) apply to feet and legs Docusate Sodium (Docusate Sodium) 250 Mg Capsule 250 MG PO BID PRN PRN For Constipation (Reported) Hydrocodone-Acetaminophen 5-325 mg (Hydrocodone-Acetaminophen 5-325 mg) 1 Each Tablet 1 EACH PO Q4H PRN PRN For Pain (Reported) Lidocaine Cream (Lidocaine Cream) 5 Gm Cream..g. 1 APPLIC TOPICAL BID PRN PRN feet pain (Reported) Mirtazapine (Mirtazapine) 30 Mg Tablet 15 MG PO HS PRN PRN Insomnia (Reported) Nitroglycerin SL (Nitrostat) 0.4 Mg Tab.subl 0.4 MG SL Q5MIN PRN PRN For Chest Pain (Reported) Additional med instructions Please take metoprolol as prescribed Followup Plan Follow-up plan F/U with PCP in one week F/U BMP prior to f/u with PCP Discharge Diet: Heart Healthy Discharge Activity: No restrictions Time spent 35 min Brittany Woody DO August 31, 2016 03:47
== END 2016-08-28 13:10 | disposition home or self-care (01) ==
LOC: SED 13:15 → MPC 15:09
PROVIDERS: ADMIT Family Medicine; ATTEND Family Medicine
DX: R07.89 Other chest pain (principal); R20.0 Anesthesia of skin; I25.10 Atherosclerotic heart disease of native coronary artery without angina pectoris; I25.2 Old myocardial infarction; I71.4 Abdominal aortic aneurysm, without rupture; R94.4 Abnormal results of kidney function studies; E78.5 Hyperlipidemia, unspecified; I10 Essential (primary) hypertension; K21.9 Gastro-esophageal reflux disease without esophagitis; J44.9 Chronic obstructive pulmonary disease, unspecified; E11.40 Type 2 diabetes mellitus with diabetic neuropathy, unspecified; Z86.73 Personal history of transient ischemic attack (TIA), and cerebral infarction without residual deficits; F32.9 Major depressive disorder, single episode, unspecified; K59.00 Constipation, unspecified; F17.210 Nicotine dependence, cigarettes, uncomplicated; Z95.5 Presence of coronary angioplasty implant and graft; Z79.51 Long term (current) use of inhaled steroids; Z79.02 Long term (current) use of antithrombotics/antiplatelets; Z66 Do not resuscitate
CPT/HCPCS: 36415; 70450; 70549; 70553; 71010; 78452; 80048; 80053; 80061; 81000; 82009; 82550; 82553; 82948; 83036; 83735; 83880; 83930; 84484; 85025; 85610; 93005; 93017; 93880; 96360; 99285; A9502; A9585; C8929; G0378; J0280; J1644; J2785; J7030

== ENCOUNTER 2016-12-30 22:18 | Emergency (ER) | payer OTHER ==
[~2016-12-30] VITALS: Ht 182.9 cm; Wt 88.6 kg
[~2016-12-30 22:18] MED LIST: AMIT150T PO; CAPS42.58 TOPICAL; DOCU250C2 PO; FLUT16SP NS; HYDR-4003 PO; HYDR12.5 PO; LIDO5CRE17 TOPICAL; LIP40 PO; LISI-571 PO; MELA1TAB11 PO; METO25TA6 PO; MIRT30TA6 PO; MONT10TA23 PO; MULT1CAP45 PO; NITR0.4T SL; PANT40TA3 PO; PREG100C PO; RISP3TAB3 PO; SYMINH INHALATION; TIOT4MIS5 IH
[2016-12-30 22:19] VITALS: BP 110/65; PULSE 98; RESP 16; O2SAT 99
--- NOTE | 2016-12-30 22:34 | ED.REPORT ---
HPI- Male Date of Service Dec 30, 2016 ED Provider: Tavares Griffiths MD Pt is a 71 year old male with a history of MN with stent placement, COPD, seizures, and aortic aneurysm who presents to the ED complaining of hematuria onset tonight. He c/o associated lower mid-back pain, stating that it is worse on the right side. Pt also reports weakness, abdominal pain, and chills. He denies fever and urinary frequency. Per pt, he has a CT scheduled for tomorrow morning as his recent blood tests indicated "something wrong with [his] kidneys. " He also states that he has intermittent bruising to the right side of his abdomen. Nursing Notes Stated Complaint: BLOOD IN URINE Chief Complaint: Male Abdominal Pain Nursing Notes Reviewed: Yes Allergies: Coded Allergies: morphine (Verified Allergy, Intermediate, Nausea,Vomiting, 12/30/16) hydrocodone (Verified Allergy, Mild, 12/30/16) methadone (Verified Allergy, Mild, 12/30/16) Scheduled Amitriptyline (Amitriptyline) 150 Mg Tablet 150 MG PO HS Atorvastatin (Lipitor) 40 Mg Tablet 40 MG PO HS Budesonide/Formoterol 160-4.5 mcg Inh (Symbicort 160-4.5 mcg Inh) 120 Puff Inhaler 2 PUFF INHALATION BID Fluticasone Propionate (Fluticasone Propionate Nasal) 16 Gm [place].susp 2 SPRAY NS DAILY Hydrochlorothiazide (Hydrochlorothiazide) 12.5 Mg Capsule 12.5 MG PO DAILY Lisinopril (Lisinopril) 5 Mg Tablet 5 MG PO DAILY Melatonin/Pyridoxine (Melatonin 3 mg Tablet) 1 Each Tablet 2 EACH PO HS Metoprolol Tartrate (Metoprolol Tartrate) 25 Mg Tablet 12.5 MG PO BID Montelukast (Montelukast) 10 Mg Tablet 10 MG PO HS Multivitamin with Minerals (Myvitalife) 1 Each Capsule 1 EACH PO DAILY Pantoprazole DR (Pantoprazole DR) 40 Mg Tablet.dr 40 MG PO BID Pregabalin (Lyrica) 100 Mg Capsule 100 MG PO TID Risperidone (Risperidone) 3 Mg Tablet 3 MG PO HS Tiotropium [place] (Spiriva Respimat) 1.25 Mcg/Actuation Mist.inhal 2 PUFFS IH DAILY Scheduled PRN Capsaicin (Capsaicin) 42.5 Gm Cream..g. 1 APPLIC TOPICAL QID PRN PRN For Pain apply to feet and legs Docusate Sodium (Docusate Sodium) 250 Mg Capsule 250 MG PO BID PRN PRN For Constipation Hydrocodone-Acetaminophen 5-325 mg (Hydrocodone-Acetaminophen 5-325 mg) 1 Each Tablet 1 EACH PO Q4H PRN PRN For Pain Lidocaine Cream (Lidocaine Cream) 5 Gm Cream..g. 1 APPLIC TOPICAL BID PRN PRN feet pain Mirtazapine (Mirtazapine) 30 Mg Tablet 15 MG PO HS PRN PRN Insomnia Nitroglycerin SL (Nitrostat) 0.4 Mg Tab.subl 0.4 MG SL Q5MIN PRN PRN For Chest Pain General Time Seen by MD: 22:33 Chief Complaint Other (Hematuria) Hx Obtained From: Patient Arrived By: Walk-in Onset Occurred: Just prior to arrival Symptom Duration: Since onset Location: : Back: RUQ Quality: Painful Radiation: : Does not radiate Severity: Current: Moderate Severity: Maximum: Moderate Recent Healthcare: No recent doctor visit, No recent hospitalization Similar Sx Previous: No Past Medical History Past Medical History MN with stents 2002 Seizures Aortic aneurysm Reports: COPD, Transient ischemic attack Past Surgical History Laparotomy Cardiac stents 2002 Smoking History Current Every Day Smoker Social History Alcohol Use: Denies alcohol use Drug Use: Denies drug use Other Social History: Good social support Ambulatory Status Independent Review of Systems Constitutional: Denies: Fever GI: Reports: Abdominal pain Male: Reports Hematuria, Denies Urinary frequency Musculoskeletal: Reports: Back pain Skin: Reports Unexplained bruises Complete sys rev & neg: except as marked. Physical Exam Initial Vital Signs Vital Signs (First) Date Time Temp Pulse Resp B/P Pulse Ox O2 Delivery O2 Flow Rate FiO2 12/30/16 22:19 36.7 98 16 110/65 99 Room Air Initial VS: Reviewed, Vital signs normal Head / Eyes: Atraumatic, Normocephalic Neck: Supple, Full range of motion Respiratory: Breath sounds normal, Clear to auscultation, No respiratory distress Cardiovascular: Regular rate & rhythm, Heart sounds normal, Intact distal pulses Extremities: Vascular intact, Neuro intact Skin: Warm, Dry, No cyanosis Neurologic: Alert, Oriented, Nonfocal Psychiatric: Mood/affect normal, Behavior normal MALE : Deferred General/Constitutional: Awake, Alert Smells strongly of cigarettes. Deep gravely voice. Abdomen: Atraumatic, Soft, No distention Tender RUQ. Well healed midline scar. Back: Atraumatic, Full range of motion Right CVA tenderness Interpretation & Diagnostics CT ABDOMEN AND PELVIS: CONCLUSION: 1. Negative for obstructive uropathy. No signs of cystitis. 2. Normal appendix. No free air, bowel obstruction, or gross intestional inflammation. Moderate colonic fecal debris, query constipation. 3. 4.4 cm infrarenal aortic aneurysm. No dissection or retroperitoneal hemorrhage. Transmitted to the ED at 00:41 by Ruben Wood M.D. Lab Results Interpretation Result Diagram: 12/30/16 2300 12/30/16 2300 Test 12/30/16 23:00 12/30/16 23:01 12/31/16 01:21 White Blood Count 11.3th/mm3 (3.8-10.1) Red Blood Count 4.00mil/mm3 (4.40-5.80) Hemoglobin 12.2g/dL (13.8-17.2) Hematocrit 36.7% (41.0-50.0) Mean Corpuscular Volume 91.8fL (81-100) Mean Corpuscular Hemoglobin 30.5pg (27.0-35.0) Mean Corpuscular Hemoglobin Concent 33.2% (32.0-37.0) Red Cell Distribution Width 14.5% (12.3-15.4) Platelet Count 286bil/L (150-400) Neutrophils (%) (Auto) 60.9% (40-74) Lymphocytes (%) (Auto) 25.7% (14-46) Monocytes (%) (Auto) 10.1% (4-12) Eosinophils (%) (Auto) 2.3% (0-5) Basophils (%) (Auto) 0.6% (0-3) Prothrombin Time 10.3sec (8.1-12.5) Prothromb Time International Ratio 0.96ratio Sodium Level 142mEq/L (134-144) Potassium Level 3.1mEq/L (3.5-5.2) Chloride Level 105mEq/L (97-108) Carbon Dioxide Level 22mmol/L (18-29) Blood Urea Nitrogen 11mg/dL (8-27) Creatinine 1.24mg/dL (0.76-1.27) Estimat Glomerular Filtration Rate 61mL/min (>59) Glucose Level 128mg/dL (60-99) Calcium Level 8.4mg/dL (8.5-10.1) Magnesium Level 1.9mg/dL (1.6-2.6) Total Bilirubin 0.3mg/dL (0.0-1.2) Aspartate Amino Transf (AST/SGOT) 12U/L (0-50) Alanine Aminotransferase (ALT/SGPT) 11U/L (0-44) Alkaline Phosphatase 105U/L (25-160) Total Protein 6.3g/dL (6.4-8.4) Albumin 3.6g/dL (3.4-5.0) Lipase 37U/L (13-60) Hold Jenkins Top Tube Received (Received) Urine Color Straw (YELLOW) Urine Appearance Hazy (CLEAR,HAZY) Urine pH 6.0 (5.0-8.0) Urine Specific [place] 1.010 (1.003-1.035) Urine Protein Negativemg/dL (NEG,TRACE) Urine Glucose (UA) Negativemg/dL (NEGATIVE) Urine Ketones Negativemg/dL (NEGATIVE) Urine Occult Blood Negative (NEGATIVE) Urine Nitrite Negative (NEGATIVE) Urine Bilirubin Negative (NEGATIVE) Urine Urobilinogen Normalmg/dL (NORMAL) Urine Leukocyte Esterase Negative (NEGATIVE) Urine RBC 0-2/hpf (0-2) Urine WBC 0-5/hpf (0-5) Urine Epithelial Cells Occasional/hpf (NONE-MOD) Urine Crystals None seen (NONE SEEN) Urine Bacteria Few/hpf (NONE-FEW) Urine Hyaline Casts None/lpf (NONE) Urine Granular Casts None seen (NONE SEEN) Urine Waxy Casts None seen (NONE SEEN) Urine Red Blood Cell Casts None seen (NONE SEEN) Urine White Blood Cell Casts None seen (NONE SEEN) Urine Mucus Present (None Seen) Urine Trichomonas None seen (NONE SEEN) Urine Yeast None (NONE SEEN) Urinalysis Comment None Urine Culture Reflexed Not indicated Lab values outside NL range: no clinical significance. Re-Eval/Medical Decision Med Decision/Clinical Course 71-year-old male who had some gross hematuria tonight which is now resolved. He also was scheduled for a CT scan tomorrow to assess his aneurysm. This was done tonight. The aneurysm appears stable and is not bleeding. There is no evidence of renal abnormality. Urinalysis is negative for any hematuria or pyuria at this time. He is being discharged home. [facility]. Source of Hx: Old records Re-Evaluation/Progress #1: Time of Eval: 22:37 Re-Evaluation/Progress Note: Informed pt of plan for bloodwork and CT scan. Pt understands and agrees with plan. All questions addressed. Re-Evaluation/Progress #2: Time of Eval: 23:11 Re-Evaluation/Progress Note: Per [facility] notification, the pt is on chronic hydrocodone: Hydrocodone filled on 12/07, 11/09, 10/12, 09/14, 08/28, and 08/13 with quantities ranging from 28 to 84. Re-Evaluation/Progress #3: Time of Eval: 01:09 Re-Evaluation/Progress Note: Pt rechecked. He is resting comfortably. Informed pt of results and need of urine sample. He is unable to provide the urine sample, prompting additional fluids. All questions addressed. Re-Evaluation/Progress #4: Time of Eval: 02:17 Re-Evaluation/Progress Note: Pt rechecked. Informed pt of lab results and diagnosis. Pt rechecked. Informed pt of plan for discharge. Pt understands and agrees with plan for discharge. F/U instructions and RTER warnings given. All questions addressed. Counseled Regarding: Diagnosis, Lab results, Need for follow-up, When/why to return to ED Discharge & Departure Impression: Primary Impression: Hematuria Additional Impression: Abdominal aortic aneurysm Presence of rupture: without rupture Qualified Code: I71.4 - Abdominal aortic aneurysm, without rupture Disposition: Home Discharge Condition All VS Reviewed: Yes Condition: Stable Patient Instructions: Hematuria (ED), Nonruptured Abdominal Aortic Aneurysm (DC ) Additional Instructions: The aneurysm seems stable with no evidence of acute bleeding or rupture. Your urine is completely clear now. Intermittent blood in the urine like this is often due to veins in the prostate. There is no evidence of infection, kidney stone, or other pathology. Recommend he follow up with your doctor as planned. They are . Will get the results of your CAT scan also. Referrals: Barbara Méndez Attestation Portions of this note were transcribed by Loan Salazar. I, Dr. Griffiths personally performed the history, physical exam and medical decision-making; I reviewed and confirmed the accuracy of the information in the transcribed note. Signed by: Anju Huynh, 12/30/16. copies to: Barbara Méndez Howard L MD Dec 30, 2016 22:34 Loan Sims Dec 30, 2016 22:45
[2016-12-30] MEDS ORDERED: 0.9% Sodium Chloride 1,000 ML IV ONE (22:43)
[2016-12-30 23:04] LABS: BASOPHILS % (AUTO) 0.6 % (0-3); EOSINOPHILS % (AUTO) 2.3 % (0-5); MONOCYTES % (AUTO) 10.1 % (4-12); Mean Corpuscular Hemoglobin 30.5 pg (27.0-35.0); Mean Corpuscular Volume 91.8 fL (81-100); NEUTROPHILS % (AUTO) 60.9 % (40-74); Platelet Count 286 bil/L (150-400)
[2016-12-30 23:23] LABS: INR 0.96 ratio
[2016-12-30 23:29] LABS: Magnesium 1.9 mg/dL (1.6-2.6)
[2016-12-31] MEDS ORDERED: Potassium Chloride 20 mEq SR Tablet PO ONE (00:05)
[2016-12-31] MEDS ORDERED: 0.9% Sodium Chloride 1,000 ML IV ONE (01:15)
[2016-12-31 02:08] LABS: APPEARANCE,URINE HAZY (CLEAR,HAZY); COLOR,URINE STRAW (YELLOW); OCCULT BLOOD,URINE NEGATIVE (NEGATIVE); UROBILINOGEN,URINE NORMAL (NORMAL)
[2016-12-31 02:52] VITALS: BP 116/62; PULSE 96; RESP 16; O2SAT 99
--- NOTE | 2016-12-31 08:29 | DRSVH ---
PROCEDURE: CT ABDOMEN AND PELVIS WITH AND WITHOUT CONTRAST ([id number]) INDICATIONS: AAA check, hematuria TECHNIQUE: Optional 5 mm thick noncontrast images acquired from the diaphragm to the symphysis pubis. After the administration of intravenous contrast, 5 mm thick images acquired from the diaphragm to the symphys is pubis after a 10-minute delay. 2 mm thick coronal and sagittal reformats were then performed of t he kidneys and ureters. For radiation dose reduction, the following was used: automated exposure co ntrol, adjustment of mA and/or kV according to patient size. COMPARISON: None. FINDINGS: Image quality: Excellent. Lung bases: Stable 5 mm left lower lobe pulmonary nodule (se 4 im 4). Heart size is normal. Urinary system: Both kidneys are normal in size, without hydronephrosis or nephrolithiasis on pre-co ntrast images. No perinephric fat stranding. There is normal bilateral renal enhancement. Renal ca lyces appear normal in morphology when filled with contrast. Opacified portions of both ureters demo nstrate normal caliber. Bladder wall thickness is normal. No calcified bladder stones. Other solid organs: Liver and spleen are normal in size and enhancement. Gallbladder is radiographi lucia normal. Biliary system is non dilated. Pancreas enhances normally. Benign left adrenal adenom a. Peritoneum and bowel: Bowel loops demonstrate normal wall thickness and caliber. The colon is patulo us and contains a moderate amount of stool. No free fluid or air. Nodes and vessels: No retroperitoneal or mesenteric adenopathy by size criteria. Calcified infrarena l abdominal aortic aneurysm measures 3.6 x 4.6 CM unchanged given differences in technique since the previous CT. There is a right internal iliac artery aneurysm measuring 3.3 CM with prominent peripher al thrombus also unchanged since the previous study.. Abdominal wall: Tiny fat containing perineal hernia.. Pelvis: No pathologic free pelvic fluid. No inguinal hernias or adenopathy. Bones: No suspicious bony lesions. No vertebral body compression fractures. IMPRESSION: 1. No renal or ureteral calculi. No hydronephrosis or ureterectasis. 2. Stable infrarenal abdominal aortic aneurysm measuring up to 4.6 CM. Stable 3.3 cm right internal i liac artery aneurysm. 3. There are no discrepancies with the preliminary report. Dictated by: Kyaw Chavarria M.D. on 12/31/2016 at 7:55 Approved by: Kyaw Chavarria M.D. on 12/31/2016 at 8:28
== END 2016-12-31 02:20 | disposition home or self-care (01) ==
LOC: SED 22:18
DX: R31.9 Hematuria, unspecified (principal); I71.4 Abdominal aortic aneurysm, without rupture; F17.210 Nicotine dependence, cigarettes, uncomplicated; I25.2 Old myocardial infarction; J45.909 Unspecified asthma, uncomplicated; R56.9 Unspecified convulsions; Z86.73 Personal history of transient ischemic attack (TIA), and cerebral infarction without residual deficits; Z95.5 Presence of coronary angioplasty implant and graft; Z88.5 Allergy status to narcotic agent; Z88.8 Allergy status to other drugs, medicaments and biological substances
CPT/HCPCS: 36415; 74178; 80053; 81000; 83690; 83735; 85025; 85610; 96360; 99285; J7030; Q9967